=== PATIENT | male | born 1955 | race Two or more races ===

== ENCOUNTER → 2019-01-24 | Outpatient (CLI) | payer MEDICAID ==
[~2019-01-24] MED LIST: ACET-2247 PO; ASPI-556 PO; ATOR20TA86 PO; ATOR40TA28 PO; AUD NEB; BISA10SU61 RC; FAMO20 PO; FISH1CAP49 PO; INSU100V SQ; IPRNEB NEB; KCL10IV IV; LISI-662 PO; MAGN2PIG IVPB; MAGN4PIG IVPB; MAGOX PO; MOM30 PO; MORP2CAR IV; NTP60T TP; ONDA220I IV; OXYC-38 PO; POTA10TA14 PO; ZOLP5 PO
[2019-01-24 12:45] LABS: ANION GAP 9 mmol/L (8-16); CARBON DIOXIDE 27 mmol/L (22-29); CHLORIDE 105 mmol/L (98-107); CREATININE 0.82 mg/dL (0.60-1.30); GLOMERULAR FILTR. RATE CALC > 60 mL/min (>60); GLUCOSE,RANDOM 107 mg/dL (70-110); POTASSIUM 5.2 mmol/L (3.5-5.1); SODIUM SERUM 141 mmol/L (136-145); UREA NITROGEN, BLOOD 11 mg/dL (7-18)
[2019-01-24 13:05] LABS: B-TYPE NATRIURETIC PEPTIDE 20 pg/mL (0-100)
== END | disposition home or self-care (01) ==
LOC: LABPV 10:31
PROVIDERS: ATTEND Internal Medicine Cardiovascular Disease
DX: E55.9 Vitamin D deficiency, unspecified (principal); I11.0 Hypertensive heart disease with heart failure; I50.9 Heart failure, unspecified; E11.8 Type 2 diabetes mellitus with unspecified complications; D56.5 Hemoglobin E-beta thalassemia

== ENCOUNTER → 2019-02-05 | Outpatient (CLI) | payer MEDICAID ==
[~2019-02-05] MED LIST changes: +ALLO100T PO; +AMLO10TA7 PO; +CLOP75TA3 PO; +SACU1TAB PO
== END | disposition home or self-care (01) ==
LOC: RADMN 10:08
PROVIDERS: ATTEND Internal Medicine Cardiovascular Disease
DX: I11.0 Hypertensive heart disease with heart failure (principal); I50.9 Heart failure, unspecified
CPT/HCPCS: 78472; A9560

== ENCOUNTER 2019-02-28 13:49 | Emergency (ER) | payer MEDICAID ==
[~2019-02-28] VITALS: Ht 182.9 cm; Wt 88.2 kg
[~2019-02-28 13:49] MED LIST changes: -ALLO100T PO; -AMLO10TA7 PO; -CLOP75TA3 PO; -SACU1TAB PO
[2019-02-28] MEDS ORDERED: SACU1TAB PO (14:06)
[2019-02-28] MEDS ORDERED: AMLO10TA7 PO (14:06)
[2019-02-28] MEDS ORDERED: ALLO100T PO (14:06)
[2019-02-28] MEDS ORDERED: CLOP75TA3 PO (14:06)
[2019-02-28 14:25] VITALS: BP 122/66
[2019-02-28] MEDS ORDERED: KETOROLAC TROMETHAMINE 30 MG/ML VIAL IM ONE (14:45)
== END 2019-02-28 15:07 | disposition home or self-care (01) ==
LOC: EMS 13:53
DX: M10.9 Gout, unspecified (principal); I10 Essential (primary) hypertension; I25.2 Old myocardial infarction; E78.00 Pure hypercholesterolemia, unspecified; Z79.82 Long term (current) use of aspirin
CPT/HCPCS: 96372; 99283; J1885

== ENCOUNTER 2019-03-01 13:05 | Emergency (ER) | payer MEDICAID ==
[~2019-03-01] VITALS: Ht 182.9 cm; Wt 88.2 kg
[~2019-03-01 13:05] MED LIST changes: -ACET-2247 PO; +ALLO100T PO; +AMLO10TA7 PO; -ATOR20TA86 PO; -AUD NEB; -BISA10SU61 RC; +CLOP75TA3 PO; -FAMO20 PO; -INSU100V SQ; -IPRNEB NEB; -KCL10IV IV; -LISI-662 PO; -MAGN2PIG IVPB; -MAGN4PIG IVPB; -MAGOX PO; -MOM30 PO; -MORP2CAR IV; -NTP60T TP; -ONDA220I IV; -OXYC-38 PO; -POTA10TA14 PO; +SACU1TAB PO; -ZOLP5 PO
[2019-03-01] MEDS ORDERED: COLCHICINE 0.6 MG TABLET PO ONE ×2 (14:00→15:00)
[2019-03-01] MEDS ORDERED: KETOROLAC TROMETHAMINE 60 MG/2 ML VIAL IM ONE (14:00)
[2019-03-01 15:13] VITALS: BP 121/73
== END 2019-03-01 15:15 | disposition home or self-care (01) ==
LOC: EMS 13:06
DX: M10.9 Gout, unspecified (principal); E78.00 Pure hypercholesterolemia, unspecified; I10 Essential (primary) hypertension; I25.2 Old myocardial infarction; Z98.890 Other specified postprocedural states; Z79.899 Other long term (current) drug therapy
CPT/HCPCS: 96372; 99283; J1885

== ENCOUNTER 2019-05-06 16:41 | Emergency (ER) | payer MEDICAID, OTHER ==
[~2019-05-06] VITALS: Ht 182.9 cm; Wt 88.2 kg
[2019-05-06] MEDS ORDERED: ADENOSINE 3 MG/ML 2 ML VIAL ONE ×2 (16:51→16:55)
[2019-05-06] MEDS ORDERED: ADENOSINE 3 MG/ML 2 ML VIAL IVP ONE ×2 (17:00)
[2019-05-06 17:18] LABS: BASOPHILS % (AUTO) 0.4 % (0.0-2.0); EOSINOPHILS % (AUTO) 1.8 % (1.0-6.0); HEMATOCRIT 51.3 % (41-53); HEMOGLOBIN 17.4 g/dL (13.5-17.5); LYMPHOCYTES # (AUTO) 4.1 K/uL (1.0-4.8); LYMPHOCYTES % (AUTO) 39.3 % (22.0-44.0); MEAN CORPUSCULAR HEMOGLOBIN 31.7 pg (26.0-34.0); MEAN CORPUSCULAR VOLUME 93 fL (80-100); MONOCYTES # (AUTO) 1.3 K/uL (0.1-1.0); MONOCYTES % (AUTO) 11.9 % (2.0-9.0); NEUTROPHILS # (AUTO) 4.9 K/uL (1.8-7.7); NEUTROPHILS % (AUTO) 46.6 % (40.0-70.0); PLATELET COUNT (AUTO) 292 K/uL (150-450); RED BLOOD CELL COUNT(AUTO) 5.49 MIL/uL (4.50-5.90); RED CELL DISTRIBUTION WIDTH 14.7 % (11.5-14.5)
[2019-05-06 17:26] LABS: CALCIUM, TOTAL 9.8 mg/dL (8.8-10.5); CREATININE 1.28 mg/dL (0.60-1.30); POTASSIUM 3.8 mmol/L (3.5-5.1)
[2019-05-06 17:32] LABS: ALBUMIN 4.6 g/dL (3.4-5.0); TOTAL PROTEIN, SERUM 8.6 g/dL (6.4-8.2)
[2019-05-06] MEDS ORDERED: SODIUM CHLORIDE 0.9% 1,000 ML IV ONE (17:45)
[2019-05-06] MEDS ORDERED: SACU1TAB7 PO (17:53)
[2019-05-06] MEDS ORDERED: FISH1 PO (17:55)
[2019-05-06 19:37] VITALS: BP 114/65
== END 2019-05-06 20:19 | disposition home or self-care (01) ==
LOC: EMS 16:43
DX: I47.1 Supraventricular tachycardia (principal); I25.10 Atherosclerotic heart disease of native coronary artery without angina pectoris; E78.00 Pure hypercholesterolemia, unspecified; I10 Essential (primary) hypertension; I25.2 Old myocardial infarction; Z79.82 Long term (current) use of aspirin
CPT/HCPCS: 36415; 71045; 80053; 83880; 84484; 85025; 93005; 96361; 96374; 99291; J0153; J7030

== ENCOUNTER 2020-01-06 01:32 | Emergency (ER) | payer OTHER ==
[~2020-01-06] VITALS: Ht 182.9 cm; Wt 90.9 kg
[~2020-01-06 01:32] MED LIST changes: +FISH1 PO; -FISH1CAP49 PO; -SACU1TAB PO; +SACU1TAB7 PO
[2020-01-06] MEDS ORDERED: ADENOSINE 3 MG/ML 2 ML VIAL ONE ×2 (01:40→01:42)
[2020-01-06 02:14] LABS: BASOPHILS % (AUTO) 0.4 % (0.0-2.0); EOSINOPHILS % (AUTO) 1.1 % (1.0-6.0); HEMATOCRIT 46.2 % (41-53); LYMPHOCYTES # (AUTO) 3.6 K/uL (1.0-4.8); LYMPHOCYTES % (AUTO) 32.7 % (22.0-44.0); MEAN CORPUSCULAR HEMOGLOBIN 31.4 pg (26.0-34.0); MEAN CORPUSCULAR HGB CONC 32.6 G/dL (31.0-37.0); MEAN CORPUSCULAR VOLUME 96 fL (80-100); MONOCYTES # (AUTO) 0.8 K/uL (0.1-1.0); MONOCYTES % (AUTO) 7.4 % (2.0-9.0); NEUTROPHILS # (AUTO) 6.5 K/uL (1.8-7.7); NEUTROPHILS % (AUTO) 58.4 % (40.0-70.0); PLATELET COUNT (AUTO) 286 K/uL (150-450); RED BLOOD CELL COUNT(AUTO) 4.79 MIL/uL (4.50-5.90); RED CELL DISTRIBUTION WIDTH 14.4 % (11.5-14.5)
[2020-01-06 02:33] LABS: PROTHROMBIN TIME 10.8 SEC (9.4-11.6)
[2020-01-06 02:38] LABS: CREATININE 1.5 mg/dL (0.60-1.30)
[2020-01-06 02:45] LABS: ALBUMIN 4.2 g/dL (3.4-5.0); BILIRUBIN,TOTAL 0.4 mg/dL (0.1-1.0)
[2020-01-06] MEDS ORDERED: SODIUM CHLORIDE 0.9% 250 ML IV ONE (02:45)
[2020-01-06] MEDS ORDERED: ADENOSINE 3 MG/ML 2 ML VIAL IVP ONE (02:45)
[2020-01-06 03:00] LABS: CALCIUM, TOTAL 9.4 mg/dL (8.8-10.5)
[2020-01-06 03:24] LABS: TOTAL PROTEIN, SERUM 7.9 g/dL (6.4-8.2)
[2020-01-06 05:25] LABS: APPEARANCE,URINE CLEAR (CLEAR); BILIRUBIN,URINE NEGATIVE (NEGATIVE); GLUCOSE, URINE (UA) NEGATIVE (NEGATIVE); KETONES,URINE 15 mg/dL (NEGATIVE); LEUKOCYTE ESTERASE ,URINE NEGATIVE (NEGATIVE); NITRATE,URINE NEGATIVE (NEGATIVE); OCCULT BLOOD,URINE NEGATIVE (NEGATIVE); PROTEIN,URINE NEGATIVE (NEGATIVE); UROBILINOGEN,URINE 0.2 mg/dL (<=1.0)
[2020-01-06 06:15] VITALS: BP 98/62
== END 2020-01-06 06:34 | disposition home or self-care (01) ==
LOC: EMS 01:32
DX: I47.1 Supraventricular tachycardia (principal); I25.10 Atherosclerotic heart disease of native coronary artery without angina pectoris; I10 Essential (primary) hypertension; I25.2 Old myocardial infarction; Z79.82 Long term (current) use of aspirin; Z79.899 Other long term (current) drug therapy
CPT/HCPCS: 36415; 71045; 80053; 81003; 82550; 83880; 84484; 85025; 85610; 85730; 93005; 96374; 99291; J0153